=== PATIENT | female | born 1990 | race Caucasian/White ===

== ENCOUNTER 2018-03-17 02:42 | Emergency (ER) | payer OTHER ==
[2018-03-17 03:01] VITALS: BMI 38.9
[2018-03-17 03:04] VITALS: PULSE 88; RESP 18; TEMP 98.3
[2018-03-17] MEDS ORDERED: Alum-Mag Hydrox-Simethicone Susp (30 mL) PO STA (03:13)
[2018-03-17] MEDS ORDERED: Sodium Chloride 0.9% 1,000 ML IV STA (03:13)
[2018-03-17] MEDS ORDERED: Atrop/Hyosc/Scopal/PB Elixir (120 ml) PO STA (03:13)
[2018-03-17] MEDS ORDERED: Famotidine 20mg/50ml 20 MG/50 ML BAG IVPB STA (03:17)
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
[2018-03-17 03:58] LABS: ALB/GLOB RATIO 1.3 (1.1-1.8); ALBUMIN 4.2 g/dL (3.0-4.8); ALT/SGPT 33 U/L (7-56); AST/SGOT 23 U/L (14-36); BLOOD UREA NITROGEN 15 mg/dL (7-21); CALCIUM 8.8 mg/dL (8.4-10.5); GFR AFRICAN-AMERICAN > 60; GFR NON-AFRICAN AMERICAN > 60; LIPASE 110 U/L (23-300)
[2018-03-17 04:14] LABS: URINE BILIRUBIN NEGATIVE (NEGATIVE); URINE BLOOD LARGE (NEGATIVE); URINE GLUCOSE (UA) NEGATIVE (NEGATIVE); URINE LEUKOCYTE ESTERASE SMALL Leu/uL (NEGATIVE); URINE PROTEIN 30 mg/dL (<30 mg/dL); URINE UROBILINOGEN 0.2 E.U./dL (<1 E.U./dL)
[2018-03-17 04:22] LABS: BASO # 0.02 K/mm3 (0.0-2.0); BASO % 0.4 % (0.0-3.0); EOS # 0.1 (0.0-0.7); EOS % 2.7 % (1.5-5.0); GRAN # 3.39 (1.4-6.5); GRAN % 65.2 % (50.0-68.0); LYMPH # 1.3 (1.2-3.4); MEAN CELL VOLUME 88.1 fl (80.0-105.0); MEAN CORPUSCULAR HEMOGLOBIN 29.7 pg (25.0-35.0); MEAN CORPUSCULAR HGB CONC 33.7 g/dl (31.0-37.0); MEAN PLATELET VOLUME 9.9 fl (7.0-11.0); MONO # 0.4 (0.1-0.6); MONO % 7.7 % (1.0-6.0); RBC 5.05 10^6/uL (3.5-6.1); RED CELL DISTRIBUTION WIDTH 12.9 % (11.5-14.5); WHITE BLOOD COUNT 5.2 10^3/ul (4.5-11.0)
[2018-03-17 04:24] LABS: URINE APPEARANCE SL CLOUDY (CLEAR); URINE COLOR YELLOW (YELLOW)
[2018-03-17 06:03] LABS: URINE BACTERIA FEW (NEG); URINE EPITHELIAL CELLS 0 - 2 /hpf (0-5); URINE RBC 15 - 20 /hpf (0-2)
[2018-03-17 06:27] VITALS: BP 125/82; O2SAT 100
== END 2018-03-17 06:26 | disposition home or self-care (01) ==
LOC: ED 02:42
DX: R10.10 Upper abdominal pain, unspecified (principal)
CPT/HCPCS: 80053; 81001; 83690; 83735; 85025; 87086; 96374; 99283; J2405; J7040